=== PATIENT | male | born 1980 | race Caucasian/White ===

== ENCOUNTER 2017-04-30 20:02 | Emergency (ER) | payer MEDICAID ==
[2017-04-30 20:08] VITALS: BP 146/77
[2017-04-30] MEDS ORDERED: ACETAMINOPHEN WITH CODEINE #3 TABLET PO ONE (21:02)
--- NOTE | 2017-04-30 21:02 | ER Document Report ---
HPI - HPI Pain Level: 3 Context: Patient is a 36-year-old male who presents emergency department after a fall earlier today. Patient states that he slipped and pulled his right groin muscle. Otherwise he denies any fall, difficulty bearing weight. He admits to pain is worse with movement and to deep palpation. He states he took 800 mg Motrin at about noon today. Otherwise he denies any pain radiating into his testicles are down his leg. Denies any numbness or tingling in his distal extremity. - CARDIOVASCULAR Cardiovascular: DENIES: Chest pain - RESPIRATORY Respiratory: DENIES: Trouble Breathing Past Medical History - Social History Smoking Status: Never Smoker Chew tobacco use (# tins/day): No Frequency of alcohol use: None Drug Abuse: None Family History: Reviewed & Not Pertinent Patient has suicidal ideation: No Patient has homicidal ideation: No Renal/ Medical History: Denies: Hx Peritoneal Dialysis Vertical Provider Document - CONSTITUTIONAL Agree With Documented VS: Yes Notes: PHYSICAL EXAM GENERAL: Alert, interacts well. ABDOMEN: Soft, nondistended, nontender. No guarding, rebound, or rigidity.. Bowel sounds present in all 4 quadrants. Male . Cremasteric reflex intact without any evidence of inguinal hernia. EXTREMITIES: Moves all 4 extremities spontaneously. Pain reproducible to palpation of the right groin and pain with hip abduction. Knee nontender with full range of motion. Hip with full range of motion. Pelvis stable nontender. No edema, radial and dorsalis pedis pulses 2/4 bilaterally. No cyanosis. NEUROLOGICAL: Alert and oriented x4. Normal speech. PSYCH: Normal affect, normal mood. SKIN: Warm, dry, normal turgor. No rashes or lesions noted. - INFECTION CONTROL TRAVEL OUTSIDE OF THE [place] IN LAST 30 DAYS: No - RESPIRATORY O2 Sat by Pulse Oximetry: 97 Course - Re-evaluation Re-evalutation: 04/30/17 2100 Patient is a 36-year-old male is hemodynamically stable, no acute distress. Low clinical suspicion for any concern for inguinal hernia given benign exam and presentation. Findings are consistent with an acute muscle strain. Patient educated on care at home and to avoid heavy lifting for the next week and a half. Patient and expressed understanding and are stable for discharge home - Vital Signs Vital signs: Temp Pulse Resp BP Pulse Ox 97.7 F 75 18 146/77 H 97 04/30/17 20:06 04/30/17 20:06 04/30/17 20:06 04/30/17 20:06 04/30/17 20:06 Discharge - Discharge Clinical Impression: Groin pain Qualifiers: Laterality: right Qualified Code(s): R10.31 - Right lower quadrant pain Condition: Good Disposition: HOME, SELF-CARE Instructions: Muscle Strain ([facility]) Additional Instructions: Please utilize Motrin to work as an anti-inflammatory. You can also supplement with Tylenol for pain relief. You can utilize warm compresses and ice as tolerated. Forms: Special Work Note
== END 2017-04-30 22:00 | disposition home or self-care (01) ==
LOC: ER 20:02
DX: R10.31 Right lower quadrant pain (principal); W01.0XXA Fall on same level from slipping, tripping and stumbling without subsequent striking against object, initial encounter
CPT/HCPCS: 99283

== ENCOUNTER 2017-09-18 12:52 | Emergency (ER) | payer MEDICAID ==
[2017-09-18 12:58] VITALS: BP 132/78
--- NOTE | 2017-09-18 14:59 | ER Document Report ---
ED Extremity Problem, Lower - General Chief Complaint: Ankle Swelling Stated Complaint: FOOT PAIN Time Seen by Provider: 09/18/17 14:41 Mode of Arrival: Ambulatory Information source: Patient TRAVEL OUTSIDE OF THE [place] IN LAST 30 DAYS: No - HPI Notes: 36-year-old male presents emergency department for evaluation of right ankle pain and swelling 1 a week. Patient reports that the pain is on the medial side of his ankle. He denies any injury or trauma. He denies history of gout or diabetes. He denies any numbness to the foot. Patient reports that he is taken 6-7 800 mg Motrin a day without relief. Also reports that he has been icing it and elevating it as well without relief. He denies any fever, rash, chest pain, shortness of breath, abdominal pain, nausea, vomiting, diarrhea, dysuria, or hematuria. - Related Data Allergies/Adverse Reactions: aspirin Allergy (Verified 09/18/17 14:48) Past Medical History - General Information source: Patient - Social History Smoking Status: Never Smoker Chew tobacco use (# tins/day): No Frequency of alcohol use: None Drug Abuse: None Family History: Reviewed & Not Pertinent Patient has suicidal ideation: No Patient has homicidal ideation: No Renal/ Medical History: Denies: Hx Peritoneal Dialysis Review of Systems - Review of Systems -: Yes All other systems reviewed and negative Physical Exam - Vital signs Vitals: Temp Pulse Resp BP Pulse Ox 98.7 F 76 20 132/78 H 98 09/18/17 12:56 09/18/17 12:56 09/18/17 12:56 09/18/17 12:56 09/18/17 12:56 - Notes Notes: PHYSICAL EXAMINATION: GENERAL: Well-appearing, well-nourished and in no acute distress. HEAD: Atraumatic, normocephalic. Musculoskeletal: Right ankle: There is mild swelling to the medial malleolus with what appears to be mild ecchymosis. No gross deformity, erythema, or hot to the touch. Generalized tenderness to the medial malleolus with no focal bony tenderness. Ankle stable to anterior drawer. Strong pedal pulse with brisk capillary refill. Light sensation intact. Neurovascular intact. NEUROLOGICAL: Normal gait, balance, speech, and facial symmetry. PSYCH: Normal mood, normal affect. SKIN: Warm, Dry, normal turgor, no rashes or lesions noted. Course - Vital Signs Vital signs: Temp Pulse Resp BP Pulse Ox 98.7 F 76 20 132/78 H 98 09/18/17 12:56 09/18/17 12:56 09/18/17 12:56 09/18/17 12:56 09/18/17 12:56 09/18/17 16:25 Consistent with ankle swelling likely due to arthritic changes. No evidence of septic joint, gout, dislocation, or fracture. X-ray was negative for acute process. The likelihood of other entities in the differential is insufficient to justify any further testing for them. I discussed care plan at length with patient. Any and all questions were answered. She had no relief with colchicine. Will discharge home with prednisone. Advised patient to follow-up with PCP and take medications as instructed. Return immediately to the emergency department for any new, worsening, or concerning symptoms as discussed. He understands and agrees with plan. Discharge - Discharge Clinical Impression: Right ankle swelling Condition: Good Disposition: HOME, SELF-CARE Instructions: Family Physicians / Practices, Osteoarthritis ([facility]) Prescriptions: Prednisone 60 mg PO ONCEP 5 Days #15 tablet
[2017-09-18] MEDS ORDERED: COLCHICINE 0.6 MG TABLET PO ONE (15:05)
--- NOTE | 2017-09-18 16:00 | RADIOLOGY REPORT (SQ) ---
EXAM DESCRIPTION: ANKLE RIGHT COMPLETE COMPLETED DATE/TIME: 09/18/2017 3:19 pm REASON FOR STUDY: pain and swelling COMPARISON: None. NUMBER OF VIEWS: Three views. TECHNIQUE: AP, lateral, and oblique radiographic images acquired of the right ankle. LIMITATIONS: None. FINDINGS: MINERALIZATION: Normal. BONES: No acute fracture or dislocation. No worrisome bone lesions. JOINTS: No effusions. SOFT TISSUES: Diffuse medial soft tissue swelling. No foreign body. OTHER: No other significant finding. IMPRESSION: Medial soft tissue swelling. No acute displaced fracture. No ankle joint malalignment. TECHNICAL DOCUMENTATION: JOB ID: [id number] [employer]- All Rights Reserved Reading location - IP/workstation name: [email or web address]
== END 2017-09-18 16:41 | disposition home or self-care (01) ==
LOC: ER 12:52
DX: M25.571 Pain in right ankle and joints of right foot (principal); M25.471 Effusion, right ankle; Z88.6 Allergy status to analgesic agent
CPT/HCPCS: 99283; 73610; J3490

== ENCOUNTER 2017-10-27 19:17 | Emergency (ER) | payer MEDICAID ==
[2017-10-27 19:28] VITALS: BP 147/86
--- NOTE | 2017-10-27 19:45 | ER Document Report ---
HPI - HPI Patient complains to provider of: Right thumb swelling at the DIP joint Onset: Other - 1 week Onset/Duration: Gradual, Persistent Pain Level: 5 Context: 36-year-old male with polyarticular joint pain intermittently for 2 years since he had a tick bite in his left arm. He has never been tested for Lyme disease. He has been tested for gout in the past which was negative. 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 He comes today because of increased pain to his right ankle and right thumb at the PIP joint. No fever or chills. History of psoriasis. His states that it jumps around from joint to joint. Associated Symptoms: None Exacerbated by: Denies Relieved by: Denies Similar symptoms previously: Yes Recently seen / treated by doctor: No - ROS ROS below otherwise negative: Yes Systems Reviewed and Negative: Yes All other systems reviewed and negative Past Medical History - General Information source: Patient - Social History Smoking Status: Current Every Day Smoker Frequency of alcohol use: None Drug Abuse: None Lives with: Spouse/Significant other Family History: Reviewed & Not Pertinent - Medical History Medical History: Negative Renal/ Medical History: Denies: Hx Peritoneal Dialysis Surgical Hx: Negative Vertical Provider Document - CONSTITUTIONAL Agree With Documented VS: Yes Exam Limitations: No Limitations - INFECTION CONTROL TRAVEL OUTSIDE OF THE [place] IN LAST 30 DAYS: No - HEENT HEENT: Normocephalic - NECK Neck: Supple - RESPIRATORY Respiratory: Breath Sounds Normal, No Respiratory Distress - CARDIOVASCULAR Cardiovascular: Regular Rate, Regular Rhythm - GI/ABDOMEN Gastrointestinal: Abdomen Soft, Abdomen Non-Tender - MUSCULOSKELETAL/EXTREMETIES Musculoskeletal/Extremeties: MAEW, FROM, Edema - Soft tissue swelling cystic in nature dorsal right thumb over the PIP joint. No erythema or heat. He does have some pain with movement. He also has right ankle swelling without erythema. It is mildly swollen and hurts with movement. Neurovascular intact distally to the thumb swelling and toes. - NEURO Level of Consciousness: Awake Motor/Sensory: No Motor Deficit, No Sensory Deficit - DERM Integumentary: Rash - Psoriasis patches which she has had his whole life. Course - Re-evaluation Re-evalutation: 10/27/17 21:03 xrays show soft tissue swelling, old base of thumb fx. pt does not want the splint - Vital Signs Vital signs: Temp Pulse Resp BP Pulse Ox 99.6 F 98 20 147/86 H 97 10/27/17 19:27 10/27/17 19:27 10/27/17 19:27 10/27/17 19:27 10/27/17 19:27 - Laboratory Result Diagrams: 10/27/17 20:20 10/27/17 20:20 Discharge - Discharge Clinical Impression: Cystic swelling to right thumb, Medial right ankle pain and swelling Condition: Good Disposition: HOME, SELF-CARE Instructions: Ganglion Cyst ([facility]), Arthralgia ([facility]), Ibuprofen (General) ([facility]) Additional Instructions: motrin tylenol call and schedule appt with rheumatology next week call me on sunday at [phone] for the other test results Prescriptions: Ibuprofen [Motrin 800 mg Tablet] 800 mg PO Q8HP PRN #30 tablet PRN Reason: Referrals: JADEN JAMISON MD [ACTIVE STAFF] - 10/29/17
[2017-10-27] MEDS ORDERED: PREDNISONE 20 MG TABLET PO ONE (19:57)
--- NOTE | 2017-10-27 20:27 | RADIOLOGY REPORT (SQ) ---
EXAM DESCRIPTION: FINGER RIGHT COMPLETED DATE/TIME: 10/27/2017 8:15 pm REASON FOR STUDY: swelling,pain COMPARISON: None. NUMBER OF VIEWS: Three views. TECHNIQUE: AP, lateral, and oblique images acquired of the right thumb. LIMITATIONS: None. FINDINGS: MINERALIZATION: Normal. BONES: A tiny ossicle seen adjacent to the base of the thumb distal phalanx is age indeterminate, but likely represent sequela of trauma. The osseous structures are otherwise normal. SOFT TISSUES: Soft tissue thickening dorsal to the thumb interphalangeal joint. OTHER: No other significant finding. IMPRESSION: Age indeterminate avulsion injury of the base of the thumb distal phalanx. Nonspecific soft tissue thickening dorsal to the thumb interphalangeal joint. COMMENT: SITE OF TRAUMA/COMPLAINT MARKED/STAMP COMPLETED: Yes TECHNICAL DOCUMENTATION: JOB ID: [id number] [employer]- All Rights Reserved Reading location - IP/workstation name: [email or web address]
--- NOTE | 2017-10-27 20:28 | RADIOLOGY REPORT (SQ) ---
EXAM DESCRIPTION: ANKLE RIGHT COMPLETE COMPLETED DATE/TIME: 10/27/2017 8:15 pm REASON FOR STUDY: pain, swelling COMPARISON: None. NUMBER OF VIEWS: Three views. TECHNIQUE: AP, lateral, and oblique radiographic images acquired of the right ankle. LIMITATIONS: None. FINDINGS: MINERALIZATION: Normal. BONES: No acute fracture or dislocation. No worrisome bone lesions. JOINTS: No effusions. SOFT TISSUES: Trace medial soft tissue swelling. No retained radiopaque foreign body. OTHER: No other significant finding. IMPRESSION: Trace medial soft tissue swelling without underlying osseous injury. TECHNICAL DOCUMENTATION: JOB ID: [id number] [employer]- All Rights Reserved Reading location - IP/workstation name: [email or web address]
[2017-10-27 20:33] LABS: ABSOLUTE LYMPHOCYTES (AUTO) 2.2 10^3/uL (0.5-4.7); ABSOLUTE MONOCYTES (AUTO) 0.6 10^3/uL (0.1-1.4); ABSOLUTE NEUT (AUTO) 4.9 10^3/uL (1.7-8.2); BASOPHILS % (AUTO) 0.6 % (0-2); EOSINOPHILS % (AUTO) 0.4 % (0-6); HEMATOCRIT 37.5 % (37.9-51.0); HEMOGLOBIN 12.5 g/dL (13.5-17.0); LYMPHOCYTES % (AUTO) 28.5 % (13-45); MEAN CORPUSCULAR HEMOGLOBIN 26.4 pg (27.0-33.4); MEAN CORPUSCULAR HGB CONC 33.3 g/dL (32.0-36.0); MEAN CORPUSCULAR VOLUME 79 fl (80-97); MONOCYTES % (AUTO) 7.2 % (3-13); PLATELET COUNT 456 10^3/uL (150-450); RED BLOOD COUNT 4.73 10^6/uL (4.35-5.55); RED CELL DISTRIBUTION WIDTH 13.1 % (11.5-14.0); SEGMENTED NEUTROPHILS % (AUTO) 63.3 % (42-78); TOTAL CELLS COUNTED % (AUTO) 100 %; WHITE BLOOD COUNT 7.7 10^3/uL (4.0-10.5)
[2017-10-27] MEDS ORDERED: ACETAMINOPHEN 325 MG TABLET PO ONE (20:34)
[2017-10-27] MEDS ORDERED: IBUPROFEN 800 MG TABLET PO ONE (20:34)
[2017-10-27 21:02] LABS: ALANINE AMINOTRANSFERASE 22 U/L (21-72); ALBUMIN 4.5 g/dL (3.5-5.0); ALKALINE PHOSPHATASE 94 U/L (38-126); ANION GAP 15 (5-19); ASPARTATE AMINO TRANSFERASE 25 U/L (17-59); BILIRUBIN,DIRECT 0.4 mg/dL (0.0-0.4); BILIRUBIN,TOTAL 0.6 mg/dL (0.2-1.3); BLOOD UREA NITROGEN 18 mg/dL (7-20); C-REACTIVE PROTEIN 47.1 mg/L (<10.0); CALCIUM 9.9 mg/dL (8.4-10.2); CARBON DIOXIDE 27 mmol/L (22-30); CHLORIDE 104 mmol/L (98-107); GLUCOSE 95 mg/dL (75-110); POTASSIUM 3.9 mmol/L (3.6-5.0); SODIUM 146.2 mmol/L (137-145); TOTAL PROTEIN 8.4 g/dL (6.3-8.2); URIC ACID 7.2 mg/dL (3.5-8.5)
[2017-10-27 21:08] LABS: ERYTHROCYTE SEDIMENTATION RATE 88 mm/hr (0-15)
[2017-10-30 10:38] LABS: ANTICHROMATIN AB <0.2 AI (0.0-0.9); CENTROMERE B AB <0.2 AI (0.0-0.9); JO-1 ANTIBODY (ANACOMP) <0.2 AI (0.0-0.9); RNP AB <0.2 AI (0.0-0.9); SCLERODERMA-70 ANTIBODIES <0.2 AI (0.0-0.9); SJOGREN'S ANTI-SS-B AB <0.2 AI (0.0-0.9); SJOGREN'S SS-A ANTIBODY <0.2 AI (0.0-0.9); SMITH AB ANA <0.2 AI (0.0-0.9)
[2017-10-30 11:59] LABS: DNA DOUBLE STRAND ANTIBODY ANA 1 IU/mL (0-9)
[2017-10-31 07:14] LABS: LYME DISEASE IGM AB <0.80 index (0.00-0.79)
== END 2017-10-27 21:11 | disposition home or self-care (01) ==
LOC: ER 19:17
DX: M79.89 Other specified soft tissue disorders (principal); M25.541 Pain in joints of right hand; M25.471 Effusion, right ankle; M25.571 Pain in right ankle and joints of right foot; L40.9 Psoriasis, unspecified; F17.200 Nicotine dependence, unspecified, uncomplicated
CPT/HCPCS: 99284; 36415; 84550; 85025; 85652; 86140; 86430; 80053; 86618 ×2; 86617 ×2; 86225; 86235 ×8; 73610; 73140; J3490 ×2; J7512

== ENCOUNTER 2017-11-06 07:00 | Emergency (ER) | payer MEDICAID ==
[2017-11-06] MEDS ORDERED: OXYCODONE-ACETAMINOPHEN 5-325 MG TABLET PO ONE (07:41)
--- NOTE | 2017-11-06 07:42 | ER Document Report ---
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 Patient was seen here at the end of September, evaluated for the same complaints, had an x-ray of the thumb and ankle performed which were essentially negative for any acute pathology. Patient states that his right thumb has continued to swell and is red and very tender. He has no history of any arthritis that he knows of, rheumatological diseases, lupus, arthritis, gout. Patient has no family history of any of these things. Patient states that he has been eating meat and drinking alcohol recently but that nothing out of the ordinary. He is not an alcoholic. Patient denies any fevers or chills or drainage from the thumb. He denies any injury to any of these areas. TRAVEL OUTSIDE OF THE [place] IN LAST 30 DAYS: No - Related Data Allergies/Adverse Reactions: aspirin Allergy (Verified 09/18/17 14:48) Past Medical History - General Information source: Patient - Social History Smoking Status: Never Smoker Chew tobacco use (# tins/day): No Frequency of alcohol use: None Drug Abuse: None Family History: Reviewed & Not Pertinent Patient has suicidal ideation: No Patient has homicidal ideation: No Renal/ Medical History: Denies: Hx Peritoneal Dialysis Review of Systems - Review of Systems Constitutional: No symptoms reported EENT: No symptoms reported Cardiovascular: No symptoms reported Respiratory: No symptoms reported Gastrointestinal: No symptoms reported Genitourinary: No symptoms reported Male Genitourinary: No symptoms reported Musculoskeletal: See HPI Skin: See HPI Hematologic/Lymphatic: No symptoms reported Neurological/Psychological: No symptoms reported Physical Exam - Vital signs Vitals: Temp Pulse Resp BP Pulse Ox 98.2 F 74 16 139/88 H 96 11/06/17 07:01 11/06/17 07:01 11/06/17 07:01 11/06/17 07:01 11/06/17 07:01 - Notes Notes: PHYSICAL EXAMINATION: GENERAL: Well-appearing and in no acute distress. HEAD: Atraumatic, normocephalic. EYES: Pupils equal round and reactive to light, extraocular movements intact, sclera anicteric, conjunctiva are normal. NECK: Nontender to palpation, normal range of motion, supple without lymphadenopathy LUNGS: CTAB and equal. No wheezes rales or rhonchi. HEART: Regular rate and rhythm without murmurs ABDOMEN: Soft, no tenderness. No guarding, no rebound BACK: no vertebral tenderness, normal ROM GI/: no CVA tenderness EXTREMITIES: right ankle with medial edema and tenderness, normal range of motion of the ankle but with some mild pain on rotation and ambulation Normal range of motion, no pitting edema. No cyanosis. NEUROLOGICAL: Cranial nerves grossly intact. Normal sensory/motor exams. PSYCH: Normal mood, normal affect. SKIN: Warm, Dry, normal turgor, right thumb, PIP joint with large amount of swelling, erythema, tenderness, not fluctuant or indurated, Course - Re-evaluation Re-evalutation: 11/06/17 18:37 Lab work performed last visit shows a negative rheumatoid factor, negative lupus , negative Lyme titers, elevated sed rate and CRP at 88 and 47 consecutively. I am initially concerned for septic joint to the right thumb or gout. X-ray shows swelling to the ankle and right thumb but no fracture. Radiologist did call me and recommend MRI of the thumb which revealed no obvious infection, just swelling. Radiologist states that these x-rays and MRI are concerning for polyarthritis but showed nothing acute. Patient given information for hand surgeon/orthopedic doctor on-call, Dr. Tellez as well as rheumatologic DrKathy to make an appointment with today to follow-up on these findings. His sed rate was in the 90s today and CRP is 45 again today. Uric acid is actually decreased at 5.9. I will start him on a steroid taper, provide him with some pain medication. Patient is very eager and willing to make appointments with rheumatology as well as the orthopedic doctor. - Vital Signs Vital signs: Temp Pulse Resp BP Pulse Ox 97.7 F 78 18 126/73 H 98 11/06/17 11:19 11/06/17 11:19 11/06/17 11:19 11/06/17 11:19 11/06/17 11:19 - Laboratory Result Diagrams: 11/06/17 08:02 11/06/17 08:02 Laboratory results interpreted by me: 11/06/17 11/06/17 08:02 08:02 Hgb 11.8 L Hct 35.0 L MCV 79 L MCH 26.4 L ESR 94 H Sodium 145.7 H C-Reactive Protein 45.4 H Discharge - Discharge Clinical Impression: Polyarthritis, Thumb swelling Ankle pain Qualifiers: Chronicity: acute Laterality: unspecified laterality Qualified Code(s): M25.579 - Pain in unspecified ankle and joints of unspecified foot Condition: Stable Disposition: HOME, SELF-CARE Instructions: Ice & Elevation ([facility]) Additional Instructions: Return immediately for any new or worsening symptoms. Follow up with auditor in charge below, call tomorrow to make followup appointment. \ [facility] Address: [address] [place] [address] [address], [place] [address] Prescriptions: Oxycodone HCl/Acetaminophen [Percocet 5-325 mg Tablet] 1 - 2 tab PO Q4H PRN #15 tablet PRN Reason: Prednisone 10 mg PO DAILY #1 tab.ds.pk Forms: Return to Work Referrals: GURPREET TELLEZ DO [ACTIVE STAFF] - Follow up as needed
[2017-11-06 08:27] LABS: ABSOLUTE EOSINOPHILS # (AUTO) 0.1 10^3/uL (0.0-0.6); ABSOLUTE LYMPHOCYTES (AUTO) 1.8 10^3/uL (0.5-4.7); ABSOLUTE MONOCYTES (AUTO) 0.5 10^3/uL (0.1-1.4); ABSOLUTE NEUT (AUTO) 4.8 10^3/uL (1.7-8.2); BASOPHILS % (AUTO) 0.7 % (0-2); EOSINOPHILS % (AUTO) 1.3 % (0-6); HEMOGLOBIN 11.8 g/dL (13.5-17.0); LYMPHOCYTES % (AUTO) 24.7 % (13-45); MEAN CORPUSCULAR HEMOGLOBIN 26.4 pg (27.0-33.4); MEAN CORPUSCULAR HGB CONC 33.6 g/dL (32.0-36.0); MEAN CORPUSCULAR VOLUME 79 fl (80-97); MONOCYTES % (AUTO) 7.2 % (3-13); PLATELET COUNT 435 10^3/uL (150-450); RED BLOOD COUNT 4.45 10^6/uL (4.35-5.55); RED CELL DISTRIBUTION WIDTH 13.2 % (11.5-14.0); SEGMENTED NEUTROPHILS % (AUTO) 66.1 % (42-78); TOTAL CELLS COUNTED % (AUTO) 100 %; WHITE BLOOD COUNT 7.3 10^3/uL (4.0-10.5)
--- NOTE | 2017-11-06 08:35 | RADIOLOGY REPORT (SQ) ---
EXAM DESCRIPTION: FINGER RIGHT COMPLETED DATE/TIME: 11/06/2017 8:23 am REASON FOR STUDY: thumb swelling, worse pain, ankle pain worse COMPARISON: 10/27/2017 right thumb three views NUMBER OF VIEWS: Three views. TECHNIQUE: AP, lateral, and oblique images acquired of the right thumb LIMITATIONS: None. FINDINGS: MINERALIZATION: Normal. BONES: Tiny avulsion fragment off the palmar base right thumb distal phalanx is not definitely seen o n today's study. Proximal and distal phalanges are otherwise unremarkable. No aggressive bony erosion. No fracture. No periostitis worrisome for osteomyelitis. SOFT TISSUES: Marked soft tissue swelling along the film at the dorsal aspect of the interphalangeal joint. A soft tissue mass related to the extensor tendon sheath is possible. Ganglion cyst at the i nterphalangeal joint is possible. Soft tissue tumor could not be excluded. OTHER: No other significant finding. IMPRESSION: Marked soft tissue swelling along the thumb at the dorsal aspect of the interphalangeal joint. Soft tissue mass related the extensor tendon sheath or interphalangeal joint capsule is possi ble. Synovial cyst is possible. Infection is also possible. Consider MRI for followup COMMENT: SITE OF TRAUMA/COMPLAINT MARKED/STAMP COMPLETED: Yes TECHNICAL DOCUMENTATION: JOB ID: [id number] [employer]- All Rights Reserved Reading location - IP/workstation name: [email or web address]
--- NOTE | 2017-11-06 08:39 | RADIOLOGY REPORT (SQ) ---
EXAM DESCRIPTION: ANKLE RIGHT COMPLETE COMPLETED DATE/TIME: 11/06/2017 8:23 am REASON FOR STUDY: thumb swelling, worse pain, ankle pain worse COMPARISON: 10/27/2017 left ankle three views NUMBER OF VIEWS: Three views. TECHNIQUE: AP, lateral, and oblique radiographic images acquired of the right ankle. LIMITATIONS: None. FINDINGS: MINERALIZATION: Normal. BONES: No acute fracture or dislocation. No worrisome bone lesions. JOINTS: Small tibiotalar joint effusion SOFT TISSUES: Diffuse medial soft tissue swelling. No radiopaque foreign body. No soft tissue gas. OTHER: No other significant finding. IMPRESSION: Joint effusion with medial soft tissue swelling. No fracture. TECHNICAL DOCUMENTATION: JOB ID: [id number] [employer]- All Rights Reserved Reading location - IP/workstation name: [email or web address]
[2017-11-06 08:43] LABS: ANION GAP 15 (5-19); BLOOD UREA NITROGEN 13 mg/dL (7-20); C-REACTIVE PROTEIN 45.4 mg/L (<10.0); CALCIUM 9.7 mg/dL (8.4-10.2); CARBON DIOXIDE 25 mmol/L (22-30); CHLORIDE 106 mmol/L (98-107); GLUCOSE 98 mg/dL (75-110); POTASSIUM 4.3 mmol/L (3.6-5.0); SODIUM 145.7 mmol/L (137-145)
[2017-11-06] MEDS ORDERED: KETOROLAC TROMETHAMINE INJ/PF 30 MG/1 ML SDV IV ONE (08:53)
[2017-11-06 09:15] LABS: ERYTHROCYTE SEDIMENTATION RATE 94 mm/hr (0-15)
[2017-11-06] MEDS ORDERED: COLCHICINE 0.6 MG TABLET PO ONE ×2 (11:00→11:03)
--- NOTE | 2017-11-06 11:04 | RADIOLOGY REPORT (SQ) ---
EXAM DESCRIPTION: MRI RT UPPER EXTREMITY COMBO COMPLETED DATE/TIME: 11/06/2017 10:25 am REASON FOR STUDY: thumb only per Dr. Chauhan! COMPARISON: None. TECHNIQUE: Multiplanar imaging to include T1-weighted images pre and postcontrast, T-2 weighted imag es, and gradient echo imaging. Orthogonal images orientated to the plane of the right thumb. Images saved to PACS. Patient was injected with 15 mL of IV ProHance gadolinium. Estimated GFR greater than 60 LIMITATIONS: None. FINDINGS: Extensive periarticular edema and avid gadolinium enhancement is present around the right thumb interphalangeal joint soft tissues. Thickening and enhancement of the flexor hallucis tendon sheath is present extending into the thenar eminence. Flexor tendon attachment is intact. Extensor tendon is intact with mild contrast enhancement along the tendon sheath dorsal to the proxim al phalanx. Extensor tendon attachment of the dorsal base distal phalanx is intact. Right thumb interphalangeal joint exhibits normal medial and lateral collateral ligaments. Trace flu id in the joint space. Synovial enhancement is present. There is very subtle edema in the base distal phalanx, and proximal phalanx adjacent to the thumb in terphalangeal joint. These areas exhibit subtle contrast enhancement. The right 1st metacarpophalangeal joint is normal. IMPRESSION: Extensive soft tissue enhancement and edema worrisome for diffuse cellulitis. There is enhancement of the flexor and extensor tendon sheaths in the thumb. Flexor tendon sheath enhancement continues through the thenar eminence. Small interphalangeal joint effusion with minimal adjacent p eriarticular edema and enhancement. Findings are worrisome for acute onset of gout versus seronegati ve spondyloarthropathy with acute flare up. Septic joint is also possible, although more aggressive bony destruction would be expected. Reactive arthritis from prior infection elsewhere (from chlamyd ia, campylobacter, salmonella, shigella , or yersinia) is also possible. Results discussed with Harika Rothman in the emergency room TECHNICAL DOCUMENTATION: JOB ID: [id number] [email or web address]- All Rights Reserved Reading location - IP/workstation name: [facility]
[2017-11-06 11:22] VITALS: BP 126/73
== END 2017-11-06 11:22 | disposition home or self-care (01) ==
LOC: ER 07:00
DX: M13.0 Polyarthritis, unspecified (principal); M25.541 Pain in joints of right hand; M25.571 Pain in right ankle and joints of right foot; M25.441 Effusion, right hand; M25.471 Effusion, right ankle; M54.2 Cervicalgia; Z88.6 Allergy status to analgesic agent
CPT/HCPCS: 99284; 96374; 36415; 87040; 84550; 85025; 85652; 86140; 87077; 80048; 73220; 73610; 73140; A9576; J3490; J1885

== ENCOUNTER → 2017-11-06 | Outpatient (CLI) | payer MEDICAID ==
[2017-11-06 17:19] LABS: ABSOLUTE LYMPHOCYTES (AUTO) 1.1 10^3/uL (0.5-4.7); ABSOLUTE MONOCYTES (AUTO) 0.3 10^3/uL (0.1-1.4); ABSOLUTE NEUT (AUTO) 5.1 10^3/uL (1.7-8.2); BASOPHILS % (AUTO) 0.4 % (0-2); EOSINOPHILS % (AUTO) 0.6 % (0-6); HEMATOCRIT 34.5 % (37.9-51.0); HEMOGLOBIN 11.4 g/dL (13.5-17.0); LYMPHOCYTES % (AUTO) 16.4 % (13-45); MEAN CORPUSCULAR HEMOGLOBIN 25.9 pg (27.0-33.4); MEAN CORPUSCULAR HGB CONC 33.2 g/dL (32.0-36.0); MEAN CORPUSCULAR VOLUME 78 fl (80-97); MONOCYTES % (AUTO) 4.9 % (3-13); PLATELET COUNT 433 10^3/uL (150-450); RED BLOOD COUNT 4.42 10^6/uL (4.35-5.55); RED CELL DISTRIBUTION WIDTH 13.1 % (11.5-14.0); SEGMENTED NEUTROPHILS % (AUTO) 77.7 % (42-78); TOTAL CELLS COUNTED % (AUTO) 100 %; WHITE BLOOD COUNT 6.5 10^3/uL (4.0-10.5)
[2017-11-06 17:44] LABS: ANION GAP 14 (5-19); BLOOD UREA NITROGEN 15 mg/dL (7-20); C-REACTIVE PROTEIN 40.4 mg/L (<10.0); CALCIUM 9.5 mg/dL (8.4-10.2); CARBON DIOXIDE 25 mmol/L (22-30); CHLORIDE 106 mmol/L (98-107); GLUCOSE 105 mg/dL (75-110); POTASSIUM 4.3 mmol/L (3.6-5.0); SODIUM 144.7 mmol/L (137-145); URIC ACID 5.5 mg/dL (3.5-8.5)
[2017-11-06 17:54] LABS: ERYTHROCYTE SEDIMENTATION RATE 95 mm/hr (0-15)
== END ==
LOC: OD 16:01
PROVIDERS: ATTEND Orthopaedic Surgery
DX: M79.641 Pain in right hand (principal)
CPT/HCPCS: 36415; 80048; 84550; 85025; 85652; 86140